=== PATIENT | male | born 1970 | race Caucasian/White ===

== ENCOUNTER 2016-11-07 15:51 | Emergency (ER) | payer OTHER ==
[~2016-11-07] VITALS: Ht 172.7 cm; Wt 75.0 kg
[2016-11-07 21:00] VITALS: BP 114/72
== END 2016-11-07 21:00 | disposition home or self-care (01) ==
LOC: ER 16:15
DX: M25.511 Pain in right shoulder (principal); Z88.6 Allergy status to analgesic agent
CPT/HCPCS: 73030; 73060; 99284; A4565